=== PATIENT | female | born 1975 | race Caucasian/White ===

== ENCOUNTER 2020-05-13 07:14 | Day surgery (SDC) | payer BC, SELFPAY ==
[2020-05-13] VITALS (19 sets, daily range): BP systolic 96–129; BP diastolic 44–95; PULSE 54–89; RESP 12–20; TEMP 35.9–42.7; O2SAT 97–100; BMI 22.8
--- NOTE | 2020-05-13 07:43 | CT_ITS ---
PROCEDURE: CT ABDOMEN PELVIS W CON CLINICAL INDICATION: rlq pain COMPARISON: CT ABDPELW/O CT ABD PELVIS W/O CONTRAST from 08/24/2013 TECHNIQUE: IV Contrast: 75ML Isovue 370 Oral Contrast None Axial images obtained with sagittal and coronal reformats. All CT scans at the facility use one or more dose reduction, viz: automated exposure control, ma/kV adjustment per patient size (including targeted exams where dose is matched to indication, i.e. head), or iterative reconstruction technique. FINDINGS: LOWER THORAX: Minor subsegmental atelectasis in bilateral lower lobes. There is a 5 millimeter nodule in the right lower lobe adjacent to the diaphragm (series 3, image 13). ABDOMEN & PELVIS: The liver is unremarkable. The gallbladder is within normal limits. No intra or extrahepatic biliary dilation. The spleen, adrenal glands, and kidneys are unremarkable. No evidence of hydronephrosis. The pancreas is within normal limits. Large and small bowel loops demonstrate mild few colonic diverticula without evidence of diverticulitis. The appendix is thickened measuring up to 9 millimeters. No significant periappendiceal stranding or fluid collections noted. The rest of the small and large bowel loops demonstrate no focal wall thickening, obstruction or adjacent inflammatory changes. The uterus demonstrates minor heterogeneous density but otherwise appears unremarkable. In the right adnexa there is a focal hypodense lesion with rim enhancement is noted measuring up to 1.5 centimeters, likely represents ovarian lesion. The visualized abdominal aorta and its branches are unremarkable. Visualized osseous structures are unremarkable. Small fat containing umbilical hernia is noted. IMPRESSION: Thickened appendix measuring 9 millimeters. No periappendiceal stranding or fluid collections. Early/mild appendicitis should be considered. Right not adnexal heterogeneous density with small focal hypodense lesion is noted, likely ovarian in origin. Ultrasound of the pelvis is recommended for further evaluation. Colonic diverticula without evidence of diverticulitis. Dictated by: Aislinn Mcclelland 05/13/2020 08:43 Aislinn Mcclelland in [facility] 05/13/2020 08:43
[2020-05-13 07:44] LABS: Microscopic, Urine URINE MICROSCOPIC (MICROSCOPIC)
[2020-05-13 07:46] LABS: Basophils # 0.1 K/mm3 (0-0.2); Basophils % 0.9 % (0.1-2.0); Chloride 106 mmol/L (98-107); Eosinophils # 0.2 K/mm3 (0.0-0.4); Eosinophils % 3.5 % (0.1-12.0); Hematocrit 42.1 % (37.0-47.0); Hemoglobin 13.9 g/dL (12.2-16.2); Lymphocytes # 1.9 K/mm3 (0.7-4.5); Mean Corpuscular Hemoglobin 30.2 pg (27.0-31.2); Mean Corpuscular Volume 91.6 fl (81-99); Mean Platelet Volume 7.6 fl (7.4-10.4); Monocytes # 0.3 K/mm3 (0.1-1.0); Monocytes % 4.9 % (1.7-9.3); Neutrophils # 3.3 K/mm3 (1.8-7.8); Neutrophils % 57.7 % (37.0-80.0); Platelet Count 257 K/mm3 (142-424); Red Blood Count 4.59 M/mm3 (4.20-5.40); Red Cell Distribution Width 12.8 % (11.5-17.5); White Blood Count 5.7 K/mm3 (4.8-10.8)
[2020-05-13 07:47] LABS: Potassium 3.8 mmoL/L (3.5-5.1); Sodium 140 mmol/L (136-145)
[2020-05-13 07:49] LABS: Alanine Aminotransferase 20 U/L (12-78); Aspartate Amino Transferase 25 U/L (14-36); Blood Urea Nitrogen 12 mg/dl (7-17); Creatinine Clearance Estimated 98 mL/min (50-200); Estimated Glomerular Filt Rate 79 ml/min (>60); GFR (African American) 95 ML/MIN (>60)
[2020-05-13 07:50] LABS: Albumin Level 4.7 g/dl (3.5-5.0); Albumin/Globulin Ratio 1.7 (1.1-1.8); Alkaline Phosphatase 71 U/L (38-126); Anion Gap 10.8 mEq/L (5-15); Bilirubin,Total 0.7 mg/dl (0.2-1.3); Calcium 9.2 mg/dl (8.4-10.2); Carbon Dioxide 27 mmol/L (22.0-30.0); Globulin 2.7 g/dL (1.3-3.2); Glucose 103 mg/dl (74-100); Total Protein,Serum 7.4 g/dl (6.3-8.2)
[2020-05-13 07:54] LABS: Appearance,Urine CLEAR (Clear); Bilirubin,Urine Negative (Negative); Blood, Urine Negative (Negative); Color,Urine YELLOW (Yellow); Glucose,Urine (UA) Negative (Negative); Ketones,Urine Negative (Negative); Leukocyte Esterase,Urine TRACE (Negative); Nitrate,Urine Negative (Negative); PH,Urine 5.5 (5.0-8.5); Protein,Urine Negative (Negative); Specific Gravity, Urine >= 1.030 (1.005-1.030); Urobilinogen,Urine 0.2 EU/dl (0.2)
[2020-05-13 07:58] LABS: Bacteria,Urine 1+ /lpf; RBC,Urine Occasional #/hpf (0-3); Urine Pregnancy, HCG Qual. Negative (Negative)
--- NOTE | 2020-05-13 09:09 | US_ITS ---
PROCEDURE: US TRANSVAGINAL CLINICAL INDICATION: RLQ pain COMPARISON: No exams were available for comparison FINDINGS: UTERUS: 8.7 x 6cmx 5cm with a combined endometrial thickness of 11.1mm LEFT OVARY: [id number] with a volume of 6.5ml. RIGHT OVARY: 4cmx [id number] with a volume of 8.4ml. There is a focal anechoic lesion noted in the right ovary measuring 1.6 x 1.1 centimeters, demonstrates no evidence of septations or complex features. The left ovary is unremarkable. The vascularity of the ovaries is within normal limits without evidence of torsion. No free fluid is noted in the pelvis. IMPRESSION: Findings are suggestive of a simple cyst in the right ovary. No other abnormality detected. Dictated by: Aislinn Mcclelland 05/13/2020 10:20 Aislinn Mcclelland in [facility] 05/13/2020 10:20
--- NOTE | 2020-05-13 09:13 | HMH.EDABDPAI ---
ED Disposition Clinical Impression: Acute appendicitis Qualifiers: Acute appendicitis type: unspecified acute appendicitis type Qualified Code(s): K35.80 - Unspecified acute appendicitis Disposition: Admitted as Observation Condition on Discharge: Fair - Critical Care Critical Care Time: No Attestation: On 05/13/20, the high probability of a clinically significant, sudden or life threatening deterioration of the following system(s) required my full and direct attention, intervention and personal management. The time I documented below is in addition to time spent performing reported procedures but includes the following listed in this critical care notation. Medical Decision Making - Medical Records Medical records reviewed: Yes: I reviewed the patient's medical records. - Hira Inquiry Pt receiving controlled substance: No Vital Signs: 05/13/20 07:15 05/13/20 07:30 05/13/20 07:45 Temperature 96.7 F L Temperature Source Oral Pulse Rate 80 66 Pulse Rate [Left Radial] 89 Respiratory Rate 20 Blood Pressure 121/72 121/72 Blood Pressure [Right Arm] 128/68 Blood Pressure Mean 85 Blood Pressure Mean [Right Arm] 88 Blood Pressure Source Blood Pressure Source [Right Arm] Automatic Cuff Blood Pressure Position Blood Pressure Position [Right Arm] Sitting 02 Sat by Pulse Oximetry 100 100 100 Oxygen Delivery Method Room Air 05/13/20 08:01 05/13/20 08:30 05/13/20 10:15 Temperature 98.4 F 97.8 F Temperature Source Oral Temporal Artery Scan Pulse Rate 72 61 Pulse Rate [Left Radial] 77 Respiratory Rate 14 18 Blood Pressure 113/56 L 106/44 L Blood Pressure [Right Arm] 108/49 L Blood Pressure Mean 75 Blood Pressure Mean [Right Arm] 68 Blood Pressure Source Automatic Cuff Blood Pressure Source [Right Arm] Automatic Cuff Blood Pressure Position Sitting Blood Pressure Position [Right Arm] Supine 02 Sat by Pulse Oximetry 100 99 Oxygen Delivery Method Room Air Room Air - Lab Data Lab Results 05/13/20 07:21: Urine Color Yellow, Urine Appearance Clear, Urine pH 5.5, Ur Specific [place] >= 1.030, Urine Protein Negative, Urine Glucose (UA) Negative, Urine Ketones Negative, Urine Blood Negative, Urine Nitrate Negative, Urine Bilirubin Negative, Urine Urobilinogen 0.2, Ur Leukocyte Esterase Trace, Urine RBC Occasional, Urine WBC 5-10, Ur Squamous Epith Cells 5-10, Urine Bacteria 1+ 05/13/20 07:21: Urine HCG, Qual Negative 05/13/20 07:26: WBC 5.7, RBC 4.59, Hgb 13.9, Hct 42.1, MCV 91.6, MCH 30.2, MCHC 33.0, RDW 12.8, Plt Count 257, MPV 7.6, Neut % (Auto) 57.7, Lymph % (Auto) 33.0, [place] % (Auto) 4.9, Eos % (Auto) 3.5, Baso % (Auto) 0.9, Neut # (Auto) 3.3, Lymph # (Auto) 1.9, [place] # (Auto) 0.3, Eos # (Auto) 0.2, Baso # (Auto) 0.1 05/13/20 07:26: Sodium 140, Potassium 3.8, Chloride 106, Carbon Dioxide 27, Anion Gap 10.8, BUN 12, Creatinine 0.80, Estimated Creat Clear 98, Estimated GFR 79, Est GFR ( Amer) 95, Glucose 103 H, Calcium 9.2, Total Bilirubin 0.7, AST 25, ALT 20, Alkaline Phosphatase 71, Total Protein 7.4, Albumin 4.7, Globulin 2.7, Albumin/Globulin Ratio 1.7 Result diagrams: 05/13/20 07:26 05/13/20 07:26 Orders (Tests/Meds): ED MEDICATIONS Generic Name Dose Route Start Last Admin Trade Name Freq PRN Reason Stop Dose Admin Sodium Chloride 10 ml 05/13/20 08:19 05/13/20 08:20 Sodium Chloride 0.9% 10ml Syr (Rad Only) IV 06/12/20 08:18 10 ml NEEDED PRN Administration Maintain IV Site Discontinued Medications Generic Name Dose Route Start Last Admin Trade Name Freq PRN Reason Stop Dose Admin Sodium Chloride 1,000 mls @ 999 mls/hr 05/13/20 07:45 05/13/20 07:40 Sod Chlor 0.9% 1000ml Bag IV 05/13/20 08:45 999 mls/hr .Q1H1M BRIDGETT Administration Iopamidol 75 ml 05/13/20 08:18 05/13/20 08:19 Iopamidol-370 (76%);100ml Bottle IV 05/13/20 08:19 75 ml ONCE ONE Administration Ketorolac Tromethamine 30 mg 05/13/20 07:36
[2020-05-13 09:32] LABS: Adenovirus,PCR Not Detected (NotDetected); Coronavirus 229E Not Detected (NotDetected); Coronavirus NL63 Not Detected (NotDetected); Coronavirus OC43 Not Detected (NotDetected); Coronovirus HKU1,PCR Not Detected (NotDetected); Human Metapneumovirus Not Detected (NotDetected); Influenza A, PCR Not Detected (NotDetected); Rhinovirus/Enterovirus Not Detected (NotDetected)
[2020-05-13 09:33] LABS: Bordetella Pertussis Not Detected (NotDetected); Chlamydophila Pneumoniae, PCR Not Detected (NotDetected); Coronavirus 19, PCR Not Detected (NotDetected); Influenza AH1, 2009 Not Detected (NotDetected); Influenza AH1, PCR Not Detected (NotDetected); Influenza AH3,PCR Not Detected (NotDetected); Influenza B, PCR Not Detected (NotDetected); Mycoplasma Pneumoniae, PCR Not Detected (NotDetected); Parainfluenza 1, PCR Not Detected (NotDetected); Parainfluenza 2, PCR Not Detected (NotDetected); Parainfluenza 3, PCR Not Detected (NotDetected); Parainfluenza 4, PCR Not Detected (NotDetected); Respiratory Syncytial Virus Not Detected (NotDetected)
--- NOTE | 2020-05-13 09:45 | HMH.GSHP ---
HPI HPI: Patient is a pleasant healthy 44-year-old female. She states that she has some vague abdominal discomfort yesterday evening. However, approximately 3 AM this morning she developed significant abdominal pain in the lower umbilical area which persisted and radiated to the right lower quadrant. She was seen and evaluated in the emergency department and underwent CT scan which revealed findings of thickened 9 mm appendix. There is also questionable abnormality of the right ovary. Surgery was consulted. [facility] History I have reviewed the patient's past medical history: Yes *Have you ever received a pneumonia vaccine?: No *Have you received a flu vaccine this season?: No - *Social History Alcohol Intake: never *Occupational Status:: employed *Travel in the last 8 weeks: None Family Hx:: Non-contributory Review of Systems - Review of Systems Review of systems:: pertinent systems reviewed and negative unless documented below - *Neurologic Denies headache(s) Meds Home Medications Medication Instructions Recorded Confirmed Type No Known Home Medications 05/13/20 05/13/20 History Allergies Allergy/AdvReac Type Severity Reaction Status Date / Time hydrocodone [HYDROCODONE] Allergy Unknown Verified 05/13/20 07:39 morphine [MORPHINE] Allergy Unknown Verified 05/13/20 07:39 Exam Vital signs and Labs for Last 24 Hours: Temp Pulse Resp BP Pulse Ox 98.4 F 61 14 106/44 L 100 05/13/20 08:30 05/13/20 08:30 05/13/20 08:30 05/13/20 08:30 05/13/20 08:30 Laboratory Results - last 24 hr 05/13/20 07:21: Urine Color Yellow, Urine Appearance Clear, Urine pH 5.5, Ur Specific [place] >= 1.030, Urine Protein Negative, Urine Glucose (UA) Negative, Urine Ketones Negative, Urine Blood Negative, Urine Nitrate Negative, Urine Bilirubin Negative, Urine Urobilinogen 0.2, Ur Leukocyte Esterase Trace, Urine RBC Occasional, Urine WBC 5-10, Ur Squamous Epith Cells 5-10, Urine Bacteria 1+ 05/13/20 07:21: Urine HCG, Qual Negative 05/13/20 07:26: WBC 5.7, RBC 4.59, Hgb 13.9, Hct 42.1, MCV 91.6, MCH 30.2, MCHC 33.0, RDW 12.8, Plt Count 257, MPV 7.6, Neut % (Auto) 57.7, Lymph % (Auto) 33.0, [place] % (Auto) 4.9, Eos % (Auto) 3.5, Baso % (Auto) 0.9, Neut # (Auto) 3.3, Lymph # (Auto) 1.9, [place] # (Auto) 0.3, Eos # (Auto) 0.2, Baso # (Auto) 0.1 05/13/20 07:26: Sodium 140, Potassium 3.8, Chloride 106, Carbon Dioxide 27, Anion Gap 10.8, BUN 12, Creatinine 0.80, Estimated Creat Clear 98, Estimated GFR 79, Est GFR ( Amer) 95, Glucose 103 H, Calcium 9.2, Total Bilirubin 0.7, AST 25, ALT 20, Alkaline Phosphatase 71, Total Protein 7.4, Albumin 4.7, Globulin 2.7, Albumin/Globulin Ratio 1.7 I & O for Last 24 hours: Intake & Output 05/10/20 05/11/20 05/12/20 05/13/20 11:59 11:59 11:59 11:59 Weight 150 lb - *Routine HEENT Exam Head: Present: normocephalic Eye: Present: EOMI, PERRL ENT: Present: mucous membranes moist - *Routine Neck Exam Present: supple. Absent: lymphadenopathy - *Routine Respiratory Exam Present: CTA bilaterally - *Routine Cardiovascular Exam Present: RRR - *Routine Abdominal Exam Present: soft, normoactive bowel sounds, tenderness Comments: Some tenderness without guarding in the right lower quadrant. - *Routine Extremities Exam Absent: cyanosis, clubbing, edema - *Routine Skin Exam Present: warm. Absent: rash - *Routine Neurological Exam Present: alert, oriented X3 Results - Results Lab Results Last 24 Hours:: Laboratory Results - last 24 hr 05/13/20 07:21: Urine Color Yellow, Urine Appearance Clear, Urine pH 5.5, Ur Specific [place] >= 1.030, Urine Protein Negative, Urine Glucose (UA) Negative, Urine Ketones Negative, Urine Blood Negative, Urine Nitrate Negative, Urine Bilirubin Negative, Urine Urobilinogen 0.2, Ur Leukocyte Esterase Trace, Urine RBC Occasional, Urine WBC 5-10, Ur Squamous Epith Cells 5-10, Urine Bacteria 1+ 05/13/20 07:21: Urine HCG, Qual Negative
--- NOTE | 2020-05-13 09:47 | PC.NURSE ---
patient left with ultrasound. PRE-OP NURSE INSTRUCTED SUNNY C[place]AM TO HAVE ULTRASOUND BRING PT TO PRE-OP. COLORING ROOM MAN MADE AWARE
--- NOTE | 2020-05-13 09:52 | PC.NURSE ---
Care management contacted about admission
--- NOTE | 2020-05-13 10:09 | HMH.PHAVTE ---
[facility] Pharmacy VTE Monitoring - Patient Demographics Admission date: 05/13/20 Report Date: 05/13/20 Time: 10:09 Allergies/Adverse Reactions: Patient Allergies hydrocodone [HYDROCODONE] Allergy (Unknown, Unverified 05/13/20 10:09) morphine [MORPHINE] Allergy (Unknown, Verified 05/13/20 07:39) Height: 1.73 m Weight: 68.039 kg - VTE Risk Labs: VTE Related Lab Results Hgb 13.9 g/dL (12.2-16.2) 05/13/20 07:26 Hct 42.1 % (37.0-47.0) 05/13/20 07:26 Plt Count 257 K/mm3 (142-424) 05/13/20 07:26 BUN 12 mg/dl (7-17) 05/13/20 07:26 Creatinine 0.80 mg/dl (0.52-1.04) 05/13/20 07:26 Estimated Creat Clear 98 mL/min (50-200) 05/13/20 07:26 - Prophylaxis VTE Prophylaxis Ordered?: Yes Types of VTE Prophylaxis: TEDS Knee High Location of Applied Device: Bilateral Lower Extremeties
--- NOTE | 2020-05-13 10:28 | HMH.ANESCL ---
[facility] Anesthesia Checklist - Patient Identification Patient Identification: Arm Band - Structural Data Admitted From: Home Planned Operative Procedure/s: Lap. appy Consent for Planned Operative Procedure(s) Verified: Yes - NPO Status Verified Time NPO: 00:00 - Additional verifications Anesthesia Reactions: Yes (irritable) Hx Blood Transfusions: No Blood Transfusion Reaction: No - Anesthesia Plan Anesthesia Plan: Verified ASA Class: I Anesthesia Type: General [facility] History I have reviewed the patient's past medical history: Yes Medical History: Denies:: Seizures *Have you ever received a pneumonia vaccine?: No *Have you received a flu vaccine this season?: No Other Medical History: Denies: Blood Transfusion Reaction Anesthesia experience/problems:: PONV, Lip laceration - *Social History Alcohol Intake: never Substance Use Type: denies use *Occupational Status:: employed *Travel in the last 8 weeks: None Family Hx:: Non-contributory
[2020-05-13 10:35] LABS: Coronavirus 19 IgG Antibody Negative (Negative); Coronavirus 19 IgM Antibody Negative (Negative)
--- NOTE | 2020-05-13 12:44 | HMH.ANESI ---
[facility] Anesthesia Record Part I Intake, IV Amount: 1,500 Estimated blood loss (mL): 0 Urine output (mL): 200 Blood Pressure: 115/95 SaO2: 97 Pulse Rate: 84 Respiratory Rate: 12 Temperature: 97.6 F Patient is:: Awake, Stable Stable to PACU at:: 12:40
--- NOTE | 2020-05-13 12:53 | P.OP_ITS ---
Date of procedure: 05/13/20 Pre-op Diagnosis:: Acute appendicitis Post-op Diagnosis:: Same Procedure performed:: Laparoscopic appendectomy Surgeon:: Kyle Murphy MD [facility]:: Blair Cutlre Anesthesia: GETA Estimated blood loss (mL): 10 Clinical Note:: Patient is a pleasant healthy 44-year-old female. She states that she has some vague abdominal discomfort yesterday evening. However, approximately 3 AM this morning she developed significant abdominal pain in the lower umbilical area which persisted and radiated to the right lower quadrant. She was seen and evaluated in the emergency department and underwent CT scan which revealed findings of thickened 9 mm appendix. There is also questionable abnormality of the right ovary. Surgery was consulted. She did have tenderness in the right lower quadrant. She did undergo transvaginal pelvic ultrasound which revealed benign right ovarian cyst. Arrangements were made for appendectomy. Operative findings:: Patient had a thickened distended appendix in the mid body of the appendix. This was nonsuppurative. There was no other notable pathology. Operative note:: Patient was taken to the operating room. She was given preoperative intravenous antibiotics. In the operating room she was placed in a supine position. General anesthesia was induced via endotracheal tube. Samuel catheter was placed. Abdomen was prepped and draped in the standard surgical fashion. Subumbilical skin incision was made and while performing abdominal wall lift Veress needle was inserted. CO2 pneumoperitoneum was achieved to 15 mmHg. 12 mm optical trocar was inserted at the umbilicus. Intraperitoneal contents were visualized. She was positioned in Trendelenburg left side down. 5 mm trocar was inserted in the suprapubic location and right upper abdomen. Appendix was identified at the tip of the cecum. The appendix was plump and distended but nonsuppurative. Appendix was grasped with an endoscopic [place]. Mesoappendix was divided with KALYANI ultrasonic harmonic melvin with care taken to coagulate the appendiceal artery and the process. Dissection was carried down to the appendiceal base which was nondistended and noninflamed. The appendix was divided at its base with an endoscopic KATE linear cutting stapling device. Appendix was placed within an Endo Catch retrieval device and removed from the peritoneal cavity via the umbilical trocar site. Appendiceal stump was inspected for integrity and hemostasis which was assured. Limited irrigation was performed of the pelvic region and pericecal location. There is a small amount of fluid within the pelvis. She had what appeared to be benign cyst on the right ovary. The terminal ileum was inspected and run a couple feet in a retrograde fashion inspecting for pathology such as terminal ileitis or Meckel's diverticulum of which none was noted. Trochars were removed as CO2 p neumoperitoneum was evacuated. Fascia at the umbilicus was closed with a couple of 0 Vicryl sutures. Local anesthetic was infiltrated. Skin incisions were closed with 4 Monocryl in a subcuticular fashion. Steri-Strips and dressings were applied. Condition: stable Disposition: PACU Specimens:: Appendix Complications:: None immediately apparent
[2020-05-13 16:26] LABS: Microscopic,Cath URINE MICROSCOPIC (MICROSCOPIC)
[2020-05-13 16:29] LABS: Appearance,Urine/Cath CLEAR (Clear); Bilirubin,Cath Negative (Negative); Blood, Urine/Cath Negative (Negative); Color,Urine/Cath YELLOW (Yellow); Glucose,Urine/Cath (UA) Negative (Negative); Ketones,Urine/Cath Negative (Negative); Leukocyte Esterase,Cath Negative (Negative); Nitrate,Cath Negative (Negative); Protein,Urine/Cath Negative (Negative); Specific Gravity, Urine/Cath 1.015 (1.005-1.030); Urobilinogen,Cath 0.2 EU/dl (0.2)
[2020-05-13 16:43] LABS: Squamous Epithelial Ur./Cath Occasional #/hpf (0-5)
--- NOTE | 2020-05-16 07:34 | HMH.ANESII ---
[facility] Anesthesia Record Part II Discharge Time: 13:10 Destination: Surgical Day Care (OP Surgery) PACU nurse assessment reviewed?: Yes Patient Condition:: Good Anesthesia Complications:: None Swallowing reflex intact?: Yes Cyanosis?: No Blood Pressure: 101/66 Pulse Rate: 64 Temperature: 97.6 F Mental Status: Alert & Oriented Pain level:: 0 Nausea and/or vomitting:: None Intake, IV Amount: 0
[2020-05-16 07:35] VITALS: BP 101/66; PULSE 64; TEMP 36.4
== END 2020-05-13 14:00 | disposition home or self-care (01) ==
LOC: ER 09:31 → 2ND 10:20 → SDC 14:32
PROVIDERS: Emergency Medicine; Emergency Provider Emergency Medicine; PCP Internal Medicine; Visit Provider Surgery
PROC: 0DTJ4ZZ Resection of Appendix, Percutaneous Endoscopic Approach (ICD-10-PCS; CPT 44970; principal; 2020-05-13 11:15)
DX: K35.80 Unspecified acute appendicitis (principal); N83.201 Unspecified ovarian cyst, right side; Z88.6 Allergy status to analgesic agent
CPT/HCPCS: 44970; 74177; 76830; 80053; 81001; 81025; 85025; 86328; 87581; 87633; 87798; 96365; 96374; 96375; 99284; J2405; J2710; Q9967

== ENCOUNTER 2023-02-24 12:34 | Emergency (ER) | payer BC, SELFPAY ==
[2023-02-24 12:36] VITALS: BP 135/72; PULSE 94; RESP 18; TEMP 37; O2SAT 97; BMI 20.7
--- NOTE | 2023-02-24 12:42 | PC.NURSE ---
pt has a histrory of colon cancer. r sided lymph nodes are swollen in neck. rash to forehead
--- NOTE | 2023-02-24 13:06 | PC.NURSE ---
Dr. Perez at [facility] for pt eval
--- NOTE | 2023-02-24 13:11 | HMH.EDGENADL ---
Discharge Plan Disposition Patient Disposition: Home, Self-Care Prescriptions Prescriptions: New valacyclovir [Valtrex] 1 gram tablet 1,000 mg PO Q8H 7 Days Qty: 21 0RF Referrals Follow up/Referrals: Yannick Roca [Primary Care Provider] - See instructions Activity Restrictions/Add. Instructions Additional Instructions/Restrictions: Your symptoms today are consistent with herpes zoster or shingles of your facial nerves. No evidence of Adonis Santiago syndrome or ocular involvement at the moment for geniculate ganglion involvement which would be associated with vestibular balance type symptoms. If you have any high fevers neck stiffness please return the emergency department if you have any ocular involvement please return to the emergency department or follow-up with an wrecking mechanic. Otherwise this should be self-limiting you may have postherpetic neuralgia as discussed. Clinical Impressions Clinical Impression: Herpes zoster virus infection of face and ear nerves Instructions Patient Instructions: DI for Skin Abscess Discharge ED Provider: Jocelyn Perez General Adult HPI General Chief complaint: Skin/Abscess/Foreign Body Stated complaint: red adriel on forehead blurry vision pain head Time Seen by Provider: 02/24/23 12:54 Mode of Arrival: Ambulatory Source of Information: Patient Limitations: No Limitations Description of Symptoms (Recalled from ER Triage Doc. by RN): R sided head adriel and sensitivity History of Present Illness HPI narrative: Patient is a 47-year-old female with a history of colon cancer status post hemicolectomy but is been in remission. Not on any immune suppressing agents. She states that she had some discomfort on the right side of her face that started last Saturday she describes it as [id number] and she states she can draw a line interface in her scalp and she is affected on the right side but not on the left she has little bit of pain in her ear no ocular involvement however there is some lid swelling she has a vesicular rash that started on the right side of her face earlier today. No balance related issues no severe headaches meningismus or fevers. Related Data Previous Rx's Medication Instructions Recorded valacyclovir 1 gram tablet 1,000 mg PO Q8H 7 days #21 tabs 02/24/23 (Valtrex) Allergies Allergy/AdvReac Type Severity Reaction Status Date / Time morphine [MORPHINE] Allergy Unknown Verified 05/23/20 10:05 [facility] Disclaimer: The information contained in this section may have been updated after the patient was seen, as this information can be updated by other users. Social History Smoking Status: Never smoker alcohol intake: current substance use type: denies use current occupational status: employed Travel in the last 8 weeks: None ROS Obtained: Yes All systems reviewed & no additional complaints except as documented Physical Exam General General appearance: alert ENT ENT exam: Present other (No evidence of any vesicular rash on the ear no ocular involvement there is a vesicular rash on the right side of the face and a vertical oriented location just above the right brow) Respiratory Respiratory exam: Present normal lung sounds bilaterally Cardiovascular Cardiovascular exam: Present regular rate Neurological Exam Neurological exam: Present alert and oriented X3 Medical Decision Making Hira Inquiry Pt receiving controlled substance: No Vital Signs: 02/24/23 12:36 Temperature 98.6 F Temperature Source Oral Pulse Rate [Right Radial] 94 H Respiratory Rate 18 Blood Pressure [Right Arm] 135/72 Blood Pressure Mean [Right Arm] 93 02 Sat by Pulse Oximetry 97 Oxygen Delivery Method Room Air Medical Decision Narrative: 47-year-old female presented today with clinical evidence of herpes zoster associated with facial nerves. No evidence of [place] Santiago syndrome, geniculate ganglion involvement, ocular involvement etc. I am not concerned at the moment about disseminated herpes or MANAGER ECONOMIC involvement. Return precautions discussed she was given Valtrex and she was discharged in improved and stable condition. Critical Care Critical Care Time Critical Care Time: No
[2023-02-24 13:13] VITALS: BP 132/60; PULSE 70; RESP 18; TEMP 36.9; O2SAT 97
== END 2023-02-24 13:18 | disposition home or self-care (01) ==
PROVIDERS: Emergency Provider Student in an Organized Health Care Education/Training Program; PCP Internal Medicine Hospice and Palliative Medicine
DX: B02.29 Other postherpetic nervous system involvement (principal)
CPT/HCPCS: 99283